=== PATIENT | female | born 1950 | race Caucasian/White ===

== ENCOUNTER 2024-12-25 14:04 | Outpatient (AMB) | payer OTHER, SELFPAY ==
--- NOTE | 2024-12-25 14:07 | MHC.OFFVIS ---
Intake Visit Reasons: 3m Allergies No Known Allergies Allergy (Verified 12/24/24 10:16) HPI Comments Details: 74 years old woman with chronic anxiety, depression, and insomnia. A home polysomnogrm in 2023 revealed mild VANCE. She said that she has these conditions since she was a child. It worsened more than 10 years ago after her . She is presenting for prescription refills and medication review. She is currently on quetiapine 400 mg and zolpidem for insomnia and it has been working well for her without any aftereffect or side effect. She also takes Sertraline 200mg in am but no longer uses Trazodone due to a lack of effect. She reports no adverse reactions or side effects from her medication. The patient follows her medication schedule diligently as prescribed and expresses satisfaction with the treatment. Medications are filled at [facility] in [place]. She noted no changes in her conditions or the emergence of new symptoms, focusing the visit on ensuring her continued pharmaceutical management is effective. [facility] Medical History (Updated 12/25/24 @ 14:09 by Maria Alejandra Ramirez MD) RLS (restless legs syndrome) Depression with anxiety Insomnia Review of Systems Const Details: - General: Denies any side effects from medications. - Neurological: Reports compliance with morning dosing; no new symptoms reported. Physical Exam Neuro Other: Mental Status: Alert and oriented to person, place, and time. Normal attention. Normal spontaneous speech, fluency, and comprehension. No obvious issues with mood and memory. Affect is appropriate. Cranial Nerves: CN II: Visual jeffery full to confrontation, visual acuity intact. CN III, IV, : Pupils equal, round, reactive to light and accommodation. Extraocular movements are normal. CN V: Facial sensation is normal. CN VII: Facial movements symmetrical. CN VIII: Hearing intact to bedside conversation is normal. CN IX, X: Palate elevates symmetrically. CN XI: Shoulder shrug and head turn symmetrical. CN XII: Tongue midline without atrophy or fasciculations. Extrapyramidal: Full facial expressions and blinking. No rigidity. Movements are appropriate with no tremor or abnormality. Speech: Normal; no dysarthria or tremor. Assessment & Plan Assessment & Plan (1) RLS (restless legs syndrome): Comment: Meds tried: Trazodone, quetiapine, amtiryptiline Home PSG at Sleep center in Jan 2024: TST AHI 12, REM sleep AHI 30, desat to 85%. Code(s): G25.81 - Restless legs syndrome Category: Medical (2) Depression with anxiety: Code(s): F41.8 - Other specified anxiety disorders Category: Medical (3) Insomnia: Comment: Meds tried: Trazodone, quetiapine, amtiryptiline Home PSG at Sleep center in Jan 2024: TST AHI 12, REM sleep AHI 30, desat to 85%. Code(s): G47.00 - Insomnia, unspecified Category: Medical Qualifiers: Insomnia type: due to other mental disorder Qualified Code(s): F51.05 - Insomnia due to other mental disorder; F99 - Mental disorder, not otherwise specified Plan Impression: 1. 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 2. Restless legs syndrome treated with small dose of pramipexole 3. Depression treated with sertraline Recommendations: 1. Quetiapine 400 mg at night for sleep 2. Zolpidem 10 mg at night for sleep 3. Sertraline 100 mg 2 in the morning for depression 4. Pramipexole 0.25 mg at night for restless legs syndrome 5. Again education about her medicines including the potential side-effects. So far she did not have any complications or side-effects. 6. Behavioral therapy has been mentioned multiple times but she stated that it never helped and at this time she was not interested. Medications: New sertraline 200 mg (2 x 100 mg) PO QAM 180 tabs 1RF pramipexole 0.25 mg PO BEDTIME 90 tabs 1RF Refilled zolpidem 10 mg PO BEDTIME 90 tabs 1RF Coding Level of Care Code Est Pt Level 5 (77848) Diagnoses RLS (restless legs syndrome) G25.81 Depression with anxiety F41.8 Insomnia due to other mental disorder F51.05; F99 Insomnia type: due to other mental disorder
--- OUTSIDE RECORDS SUMMARY | 2024-12-25 15:17 | XMS_ITS | Clinical Summary ---
Author Organization [facility] Address [address] [place] [address] Care Team Providers Care Practice Nurse Name Role Phone Alena Bullock MD Primary Care Provider Unavailable Allergies No known active allergies Medications No known medications Active Problems No known active problems Social History Tobacco Use Types Packs/Day Years Used Date Smoking Tobacco: Never Smokeless Tobacco: Never Tobacco Cessation:Counseling Given: Not Answered Alcohol Use Standard Drinks/Week Comments Never 0 (1 standard drink = 0.6 oz pur e alcohol) Sex and Gender Information Value Date Recorded Sex Assigned at Not on file Gender Identity Not on file Sexual Orientation Not on file Job Start Date Occupation Industry Not on file Not on file Not on file Last Filed Vital Signs Vital Sign Reading Time Taken Comments Blood Pressure 131/69 05/10/2022 1:14 PM EST Pulse 71 05/10/2022 1:14 PM EST Temperature 36.1 C (97 F) 05/10/2022 1:14 PM EST Respiratory Rate - - Oxygen Saturation 99% 05/10/2022 1:14 PM EST Inhaled Oxygen Concentration - - Weight 87.5 kg (193 lb) 05/10/2022 1:14 PM EST Height 157.5 cm (5' 2 ) 05/10/2022 1:14 PM EST Body Mass Index 35.3 05/10/2022 1:14 PM EST Plan of Treatment Health Maintenance Due Date Last Done Comments Hepatitis C Screening 1950 COVID-19 Vaccine (#1) 1950 Depression Screening 1963 BMI Counseling 06/19/1969 Preventative Health Evaluation 06/19/1969 Colon Cancer Screening (Colonoscopy) 06/19/1996 Breast Cancer Screening (Mammogram) 06/19/2001 Fall Risk Assessment 06/19/2016 Osteoporosis Screening (DEXA Scan) 06/19/2016 DTap / Tdap / Td (3 - Td or Tdap) 09/09/2020 09/09/2010, 01/24/2008, 01/24/2008 Influenza Vaccine (#1) 2024 2, 01/10/2020, 01/10/2020, Additional history exists RSV Adult > 60+ Yrs or (1 - 1-dose 75+ series) 06/19/2026 Pneumococcal Vaccine Completed 06/29/2018, 05/30/19 18 Shingrix-Zoster Vaccine Completed 06/03/2019, 04/02 Hepatitis B Vaccines Aged Out No long er eligible based on patient's age to complete this topic RSV Ped < 20 months Aged Out No longe r eligible based on patient's age to complete this topic Care Teams Practice Nurse Relationship Specialty Start Date End Date Alena Bullock MD PCP - General Family Medicine 04/29/22
--- OUTSIDE RECORDS SUMMARY | 2024-12-25 15:17 | XMS_ITS | Clinical Summary ---
Author Organization [place] [address] [address] [facility] Building Address [address] [place] [address] Phone Care Team Providers Care Machine Wedger Name Role Phone Yesenia Pierson MD Primary Care Provider [phone] Allergies No known active allergies Medications ferrous sulfate 325 mg (65 mg elemental iron) tablet Take 325 mg by mouth daily. 3 Active bisacodyL (DULCOLAX) 5 mg EC tablet Take 2 tablets by mouth right before beginning bowel prep. See instructions provided by the office 2 tablet 5 Active Additional Information Patient not taking.Reported on 09/24/2024 zolpidem (AMBIEN) 10 mg tablet 5 Active losartan (COZAAR) 100 mg tabletIndication s:Essential hypertension Take 1 tablet (100 mg total) by mouth 1 (one) time each day. 90 each 1 5 025 Active sertraline (ZOLOFT) 100 mg tablet Take 2 tablets (200 mg total) by mouth 1 (one) time each day. 5 Active pramipexole (MIRAPEX) 0.25 mg tablet Take 1 tablet (0.25 mg total) by mouth at bedtime. 30 tablet 5 Active Active Problems Problem Noted Date Diagnosed Date Hypertension 03/08/2024 VANCE (obstructive sleep apnea) 03/07/2024 Essential hypertension 02/02/2024 Insomnia 02/02/2024 Leg pain, bilateral 02/02/2024 Overview (02/02/2024): Eval with Dr. Samson and referred to Dr. Arellano, venous eval 07/2018 Restless legs syndrome (RLS) 02/02/2024 Rasta ulcer 05/09/2022 Mixed hyperlipidemia 11/05/2021 Varicose veins of both lower extremities 019 Overview (02/02/2024): Procedures with Dr. Arellano, 01/2019 Osteopenia 01/18/2018 Overview (02/02/2024): Dexa 12/2017 Migraine 01/20/2017 Diverticulosis 01/18/2017 Overview (02/02/2024): On colonoscopy Erosive gastritis 01/18/2017 Overview (02/02/2024): On EGD 2013 Upper GI bleed 02/28 Rasta erosions Follows with [facility] gastroenterology Iron deficiency anemia 01/18/2017 Overview (02/02/2024): Labs 12/2016 Depression 01/12/2017 Generalized anxiety disorder 01/12/2017 Encounters Date Type Department Care Team Description 10/10/2024 Telephone Internal Medicine - [address] [place] [phone] Shyanne Becerra [place] 09/24/2024 3:00 PM EDT Office Visit Internal Medicine - [address] [place] [phone] Kelly Washburn NP Essential hypertension (Primary Dx); Anxiety and depression; Insomnia, unspecified type; Mixed hyperlipidemia; Iron deficiency anemia, unspecified iron deficiency anemia type from Last 3 Months Immunizations Immunization Administration Dates Next Due Influenza Quadravalent, MDCK , 0.5ml, with preservative (Flucelvax) 6mo and older 12/13/2017 Influenza trivalent, 0.5mL ( Fluad) 65yo and older 01/31/2023,02/14/2022,02/12/2019,12/21,01/27/2016 Influenza trivalent, 0.5mL, preservative free (Fluarix; FluLaval; Fluzone) ages 6mo and older (Afluria) 3 years and older 01/10/2020 Moderna SARS-CoV-2 COVID-19, mRNA, LNP-S, preservative free 04/05/2021 Pneumococcal conjugate 13 va lent (Prevnar 13, PCV13) 2mo and older 05/29/2017 Pneumococcal polysaccharide 23 valent (Pneumovax 23) 2yo and older 06/29/2018 TD, Adsorbed, Preservative Free 06/25/2021 Td Tetanus diptheria (Tdvax) 7yo and older 01/24/2008 Tdap Tetanus diptheria acell ular pertussis (Boostrix; Adacel) 7yo and older 09/09/2010,01/24/2008 Zoster Live 05/29/2017 Zoster recombinant (Shingrix ) 19yo and older 06/03/2019,04/02/2019 Surgical History Surgery Date Site/Laterality Comments PARTIAL HYSTERECTOMY 2006 PROCEDURE: MO SUPRACERVICAL ABDL HYSTER W/WO RMVL TUBE OVARY; COMMENT: BATSHEVA BSO COLONOSCOPY 01/02/2013 PROCEDURE: HISTORICAL COLONOSCOPY; COMMENT: Dr. Thania Coffman, 5 yr f/u, diverticulosis ESOPHAGOGASTRODUODENOSCOPY 03/13/2014 PROCEDURE: MO ESOPHAGOGASTRODUODENOSCOPY TRANSORAL DIAGNOSTIC; COMMENT: erosive gastritis COLONOSCOPY 02/15/2006 PROCEDURE: HISTORICAL COLONOSCOPY OTHER SURGICAL HISTORY Right PROCEDURE: BREAST TISSUE EXCISIONAL PATHOLOGY EXAM; COMMENT: aspiration VARICOSE VEIN SURGERY 01/2019 PROCEDURE: MO LIGJ DIVJ &/EXCJ VARICOSE VEIN CLUSTER 1 LEG; COMMENT: Dr. Arellano; ablation of right great saphenous vein from proximal thigh to mid calf and accessory vein of lateral mid thigh, accessory/varicose vein of lateral mid thigh and calf Medical History Medical History Date Comments Depression DX:Depression Anxiety DX:Anxiety; COMM ENT: on lorazepam since the Leg pain, bilateral DX:Leg pain, bilateral Insomnia DX:Insomnia Restless legs syndrome (RLS) DX: Restless legs syndrome (RLS) Borderline high blood pressure D X:Borderline high blood pressure Stomach ulcer DX:Stomach ulcer Migraine 01/20/2017 DX:Migraine Hypertension VANCE (obstructive sleep apnea) Family History Medical History Relation Name Comments Lung cancer Brother 1 Diabetes Brother 2 Hypertension Brother 2 stroke, diabete s Stroke Brother 2 Diabetes Brother 3 Hypertension Brother 3 diabetes Diabetes Brother 4 Hypertension Brother 4 diabetes Diabetes Brother 5 Diabetes Brother 6 No Known Problems Daughter 1 No Known Problems Daughter 2 Colon cancer Maternal Grandmother Coronary artery disease Mother Dementia Mother CAD, pacemaker Hypertension Mother Diabetes Sister Colon cancer Uncle Breast cancer Neg Hx Relation Name Status Comments Brother 1 Brother 2 Alive Brother 3 Alive Brother 4 Alive Brother 5 Alive Brother 6 Alive Daughter 1 Alive Daughter 2 Alive Father Maternal Grandmother Mother Sister Alive Uncle Social History Tobacco Use Types Packs/Day Years Used Date Smoking Tobacco: Never Smokeless Tobacco: Never Tobacco Cessation:Counseling Given: Not Answered Alcohol Use Standard Drinks/Week Comments Not Currently 0 (1 standard drink = 0.6 oz pur e alcohol) Interpersonal Safety Answer Date Record ed Physical Abuse Unrecognized value 05/01/2024 Verbal Abuse Unrecognized value 05/01/2024 Comments No Sex and Gender Information Value Date Recorded Sex Assigned at Female 04/30/2024 10:07 AM EST Legal Sex Female 5:15 PM EST Gender Identity Female 04/30/2024 10:07 AM EST Sexual Orientation Straight 04/30/2024 10 :07 AM EST Obstetrics History Last Filed Vital Signs Vital Sign Reading Time Taken Comments Blood Pressure 112/66 09/24/2024 2:46 PM EDT Pulse 81 09/24/2024 2:46 PM EDT Temperature 36 C (96.8 F) 05/01/2024 1:21 PM EST Respiratory Rate 16 09/24/2024 2:46 PM EDT Oxygen Saturation 98% 05/01/2024 2:04 PM EST Inhaled Oxygen Concentration - - Weight 80.9 kg (178 lb 6.4 oz) 09/24/2024 2:46 P M EDT Height 157.5 cm (5' 2 ) 05/01/2024 1:21 PM EST Body Mass Index 32.63 05/01/2024 1:21 PM EST Plan of Treatment Upcoming Encounters Date Type Department Care Team (Late st Contact Info) Description 03/28/2025 2:30 PM EST Office Visit Internal Medicine - [address] [phone] Kelly Washburn NP [address] [place] [phone] Health Maintenance Due Date Last Done Comments Medicare Annual Wellness Visit 03/05/2022 Social Influencers of Health Screening 03/05/2022 Depression Screening 03/27/2024 COVID-19 Vaccine ( season) 2024 04/05/2021, 07/10/2020, 06/11/2020 Influenza Vaccine (#1) 2024 3, 02/14/2022, 01/09/2021, Additional history exists Hypertension/CHF/CAD Annual BMP Blood Test 03/08/2025 03/08/2024, 09/30/2022 Falls Risk Assessment 05/01/2025 05/01/2024 Breast Cancer Screening 08/15/2025 08/16/19 24, 08/16/2023, 08/04/2022, Additional history exists RSV Immunization Adult Patients (1 - 1-dose 75+ series) 06/19/2026 Colorectal Cancer Screening: Colonoscopy 05/01/2029 05/01/2024, 01/20/2016 Cholesterol Screening (Lipid Panel) 09/25/2029 09/25/2024, 03/08/2024, 11/15/2022 DTaP,Tdap,and Td Vaccines (5 - Td or Tdap) 06/26/2031 06/25/2021, 09/09/2010, 01/24/2008, Additional history exists Osteoporosis Screening (Bone Density Screening) 08/28/2033 08/29/2023, 08/28/2023, 06/10/2020, Additional history exists Hepatitis C Screening Completed 05/06/2015 Pneumococcal Vaccine: 50+ Years Completed 06/29/2018, 05/29/2017 Zoster Vaccines Completed 06/03/2019, 09/2019, 05/29/2017 HIB Vaccines Aged Out No longer eligi ble based on patient's age to complete this topic HPV Vaccines Aged Out No longer eligi ble based on patient's age to complete this topic Hepatitis A Vaccines Aged Out No long er eligible based on patient's age to complete this topic Hepatitis B Vaccines Aged Out No long er eligible based on patient's age to complete this topic IPV Vaccines Aged Out No longer eligi ble based on patient's age to complete this topic MMR Vaccines Aged Out No longer eligi ble based on patient's age to complete this topic Meningococcal ACWY Vaccine Aged Out N o longer eligible based on patient's age to complete this topic Meningococcal B Vaccine Aged Out No l onger eligible based on patient's age to complete this topic RSV Immunization Patients Under 20 months Aged Out No longer eligible based on patient's age to complete this topic Varicella Vaccines Aged Out No longer eligible based on patient's age to complete this topic Procedures Procedure Name Priority Date/Time Associated Diagnosis Comments CBC WITH AUTO DIFFERENTIAL Routine 09/25/2024 11:14 AM EDT Iron deficiency anemia, unspecified iron deficiency anemia type LIPID PANEL WITH REFLEX TO DIRECT LDL Routine 09/25/2024 11:14 AM EDT Mixed hyperlipidemia CBC AND DIFFERENTIAL Routine 09/25/2024 11:14 AM EDT Iron deficiency anemia, unspecified iron deficiency anemia type IRON AND TIBC Routine 09/25/2024 11:14 AM EDT Iron deficiency anemia, unspecified iron deficiency anemia type FERRITIN Routine 09/25/2024 11:14 AM EDT Iron deficiency anemia, unspecified iron deficiency anemia type COLONOSCOPY Routine 05/01/2024 1:43 PM EST Family history of colonic polyps BASIC METABOLIC PANEL Routine 03/08/2024 9:46 AM EST Other fatigue YESIKA DEXA AXIAL SKELETON Routine 08/29/2023 9:36 AM EDT Other specified disorders of bone density and structure, other site SCREENING MAMMOGRAPHY BI 2-VIEW BREAST INC CAD Routine 08/16/2023 9:57 AM EDT Encounter for screening mammogram for malignant neoplasm of breast HM HEPATITIS C SCREENING Routine 05/06/2015 from Last 3 Months or Most Recently Relevant to Health Maintenance Results * (ABNORMAL) Lipid panel with reflex to direct LDL (09/25/2024 11:14 AM EDT) Cholesterol 157 0 - 200 mg/dL LAB CHEMISTRY METHOD 09/25/2024 3:14 PM EDT [facility] Triglycerides 195(H) 0 - 150 mg/dL LAB CHEMISTRY METHOD 09/25/2024 3:14 PM EDT [facility] HDL 48 >=40 mg/dL LAB CHEMISTRY METHOD 09/25/2024 3:14 PM EDT [facility] LDL Calculated 70 0 - 100 mg/dL LAB CHEMISTRY METHOD 09/25/2024 3:14 PM EDT [facility] VLDL Cholesterol Moises 39 mg/dL LAB CHEMISTRY METHOD 09/25/2024 3:14 PM EDT [facility] Non HDL Chol. (LDL+VLDL) 109 <145 mg/dL LAB CHEMISTRY METHOD 09/25/2024 3:14 PM EDT [facility] Chol/HDL Ratio 3.3 0.0 - 4.4 LAB CHEMISTRY METHOD 09/25/2024 3:14 PM EDT [facility] Blood Venous blood specimen / Unknown Venipuncture / Unknown 09/25/2024 11:14 AM EDT 09/25/2024 11:14 AM EDT us Kelly Washburn NP LAB BLOOD ORDERABLES Final Resul t [facility] [address] [place] [address], * (ABNORMAL) CBC auto differential (09/25/2024 11:14 AM EDT) WBC 5.7 4.8 - 10.8 K/[facility] LAB HEMETOLOGY METHOD 09/25/2024 1:51 PM EDT [facility] RBC 4.70 3.80 - 4.80 M/mcL LAB HEMETOLOGY METHOD 09/25/2024 1:51 PM [facility] Hemoglobin 13.8 11.5 - 16.0 g/dL LAB HEMETOLOGY METHOD 09/25/2024 1:51 PM [facility] Hematocrit 42.8 35.0 - 47.0 % LAB HEMETOLOGY METHOD 09/25/2024 1:51 PM [facility] MCV 91.3 79.0 - 98.0 FL LAB HEMETOLOGY METHOD 09/25/2024 1:51 PM [facility] MCH 29.4 27.0 - 32.0 pcg LAB HEMETOLOGY METHOD 09/25/2024 1:51 PM [facility] MCHC 32.2 32.0 - 37.0 g/dL LAB HEMETOLOGY METHOD 09/25/2024 1:51 PM [facility] RDW 13.3 11.0 - 15.0 % LAB HEMETOLOGY METHOD 09/25/2024 1:51 PM [facility] Platelets 244 130 - 400 K/mcL LAB HEMETOLOGY METHOD 09/25/2024 1:51 PM [facility] MPV 11.3(H) 7.0 - 11.0 FL LAB HEMETOLOGY METHOD 09/25/2024 1:51 PM [facility] NRBC 0.0 <1.0 % LAB HEMETOLOGY METHOD 09/25/2024 1:51 PM [facility] NRBC Absolute 0.00 <0.10 K/mcL LAB HEMETOLOGY METHOD 09/25/2024 1:51 PM [facility] Neutrophils Relative 56.8 % LAB HEMETOLOGY METHOD 09/25/2024 1:51 PM [facility] Lymphocytes Relative 31.3 % LAB HEMETOLOGY METHOD 09/25/2024 1:51 PM [facility] Monocytes Relative 6.5 % LAB HEMETOLOGY METHOD 09/25/2024 1:51 PM EDT [facility] Eosinophils Relative 4.4 % LAB HEMETOLOGY METHOD 09/25/2024 1:51 PM EDT [facility] Basophils Relative 0.7 % LAB HEMETOLOGY METHOD 09/25/2024 1:51 PM EDT [facility] Immature Granulocytes Relative 0.3 % LAB HEMETOLOGY METHOD 09/25/2024 1:51 PM EDT [facility] Neutrophils Absolute 3.25 1.50 - 7.00 K/mcL LAB HEMETOLOGY METHOD 09/25/2024 1:51 PM EDT [facility] Lymphocytes Absolute 1.79 1.00 - 5.00 K/mcL LAB HEMETOLOGY METHOD 09/25/2024 1:51 PM EDT [facility] Monocytes Absolute 0.37 0.20 - 1.00 K/mcL LAB HEMETOLOGY METHOD 09/25/2024 1:51 PM EDT [facility] Eosinophils Absolute 0.25 0.00 - 0.50 K/mcL LAB HEMETOLOGY METHOD 09/25/2024 1:51 PM EDT [facility] Basophils Absolute 0.04 0.00 - 0.20 K/mcL LAB HEMETOLOGY METHOD 09/25/2024 1:51 PM EDT [facility] Immature Granulocytes Absolute 0.02 0.00 - 0.03 K/mcL LAB HEMETOLOGY METHOD 09/25/2024 1:51 PM EDT [facility] Blood Venous blood specimen / Unknown Venipuncture / Unknown 09/25/2024 11:14 AM EDT 09/25/2024 11:14 AM EDT us Kelly Washburn NP LAB BLOOD ORDERABLES Final Resul t [facility] [address] [place] [address], [place] [phone] * Iron and TIBC (09/25/2024 11:14 AM EDT) Iron 90 40 - 150 mcg/dL LAB CHEMISTRY METHOD 09/25/2024 3:14 PM EDT [facility] TIBC 267 250 - 450 mcg/dL LAB CHEMISTRY METHOD 09/25/2024 3:14 PM EDT [facility] Iron Saturation 34 15 - 50 % LAB CHEMISTRY METHOD 09/25/2024 3:14 PM EDT [facility] Blood Venous blood specimen / Unknown Venipuncture / Unknown 09/25/2024 11:14 AM EDT 09/25/2024 11:14 AM EDT us Kelly Washburn NP LAB BLOOD ORDERABLES Final Resul t Performing Organization Address City/[facility]/ZIP Co de Phone Number [facility] [address] [place] [address], [place] [phone] * Ferritin (09/25/2024 11:14 AM EDT) Ferritin 129 8 - 252 ng/mL LAB CHEMISTRY METHOD 09/25/2024 3:14 PM EDT [facility] Blood Venous blood specimen / Unknown Venipuncture / Unknown 09/25/2024 11:14 AM EDT 09/25/2024 11:14 AM EDT us Kelly Washburn NP LAB BLOOD ORDERABLES Final Resul t Performing Organization Address City/[facility]/ZIP Co de Phone Number [facility] [address] [place] [address], [place] [phone] * [place]ONOSCOPY [place] [facility] [place] [facility]COPY (05/01/2024 1:43 PM EST) Anatomical Region Laterality Modality Endoscopy 05/01/2024 1:24 PM EST Impressions 05/01/2024 1:44 PM EST - The examination was otherwise normal on direct and retroflexion views. - No specimens collected. Recommendation: - - Discharge patient to home. - Resume previous diet. - Continue present medications. - Repeat colonoscopy in 10 years for screening purposes. - Return to primary care physician. Narrative 05/01/2024 1:44 PM EST [facility] GI Patient Name: Hilda Mccarthy Procedure Date: 05/01/2024 1:24 PM Date of : 1950 Age: 73 Gender: Female Note Status: Finalized Attending MD: Kit De Leon DO, [id number] Procedure Date No Time: 05/01/2024 Procedure: Colonoscopy Indications: Screening for colorectal malignant neoplasm Providers: Kit De Leon DO Referring MD: Chuyita Gillette DO Medicines: Monitored Anesthesia Care Complications: No immediate complications. Estimated blood loss: None. Estimated Blood Loss: Estimated blood loss: none. Procedure: Pre-Anesthesia Assessment: - - Prior to the procedure, a History and Physical was performed, and patient medications and allergies were reviewed. The patient is competent. The risks and benefits of the procedure and the sedation options and risks were discussed with the patient. All questions were answered and informed consent was obtained. Patient identification and proposed procedure were verified by the physician, the nurse, the anesthesiologist, the process engineering intern and the emergency room technician in the pre-procedure area in the endoscopy suite. Mental Status Examination: alert and oriented. Airway Examination: normal oropharyngeal airway and neck mobility. Respiratory Examination: clear to auscultation. CV Examination: normal. Prophylactic Antibiotics: The patient does not require prophylactic antibiotics. Prior Anticoagulants: The patient has taken no anticoagulant or antiplatelet agents. ASA Grade Assessment: II - A patient with severe systemic disease. After reviewing the risks and benefits, the patient was deemed in satisfactory condition to undergo the procedure. The anesthesia plan was to use monitored anesthesia care (MAC). Immediately prior to administration of medications, the patient was re-assessed for adequacy to receive sedatives. The heart rate, respiratory rate, oxygen saturations, blood pressure, adequacy of pulmonary ventilation, and response to care were monitored throughout the procedure. The physical status of the patient was re-assessed after the procedure. After I obtained informed consent, the scope was passed under direct vision. Throughout the procedure, the patient's blood pressure, pulse, and oxygen saturations were monitored continuously. The Olympus Pediatric Colonoscope was introduced through the anus and advanced to the cecum, identified by appendiceal orifice and ileocecal valve. The colonoscopy was performed without difficulty. The patient tolerated the procedure well. The quality of the bowel preparation was good. Findings: The perianal and digital rectal examinations were normal. The exam was otherwise without abnormality on direct and retroflexion views. Procedure Code(s): --- Professional --- G0121, Colorectal cancer screening; colonoscopy on individual not meeting criteria for high risk Diagnosis Code(s): --- Professional --- Z12.11, Encounter for screening for malignant neoplasm of colon CPT copyright 2020 [employer]. All rights reserved. The codes documented in this report are preliminary and upon communications planner review may be revised to meet current compliance requirements. KIT De Leon DO 05/01/2024 1:43:40 PM This report has been signed electronically.Kit De Leon DO Number of Addenda: 0 Note Initiated On: 05/01/2024 1:24 PM Scope Withdrawal Time: 0 hours 6 minutes 13 seconds Scope In: 1:30:20 PM Scope Out: 1:41:27 PM Endoscopy Department at [facility] - [address] [place] [phone] Procedure Note Kit De Leon DO - 05/01/2024 [facility] GI Patient Name: Hilda Mccarthy Procedure Date: 05/01/2024 1:24 PM Date of : 1950 Age: 73 Gender: Female Note Status: Finalized Attending MD: Kit De Leon DO, [id number] Procedure Date No Time: 05/01/2024 Procedure: Colonoscopy Indications: Screening for colorectal malignant neoplasm Providers: Kit De Leon DO Referring MD: Chuyita Gillette DO Medicines: Monitored Anesthesia Care Complications: No immediate complications. Estimated blood loss:None. Estimated Blood Loss: Estimated blood loss: none. Procedure: Pre-Anesthesia Assessment: - - Prior to the procedure, a History and Physicalwas performed, and patient medications and allergieswere reviewed. The patient is competent. The risks and benefits of the procedure and the sedation optionsand risks were discussed with the patient. Allquestions were answered and informed consent was obtained. Patient identification and proposed procedure were verified by the physician, the nurse, the anesthesiologist, the process engineering intern and thetechnician in the pre-procedure area in the endoscopy suite. Mental Status Examination: alert and oriented.Airway Examination: normal oropharyngeal airway and neck mobility. Respiratory Examination: clear to auscultation. CV Examination: normal. Prophylactic Antibiotics: The patient does not requireprophylactic antibiotics. Prior Anticoagulants: The patient has taken no anticoagulant or antiplatelet agents. ASA Grade Assessment: II - A patient with severesystemic disease. After reviewing the risks and benefits,the patient was deemed in satisfactory condition to undergo the procedure. The anesthesia plan was touse monitored anesthesia care (MAC). Immediately priorto administration of medications, the patient was re-assessed for adequacy to receive sedatives. The heart rate, respiratory rate, oxygen saturations, blood pressure, adequacy of pulmonary ventilation,and response to care were monitored throughout the procedure. The physical status of the patient was re-assessed after the procedure. After I obtained informed consent, the scope was passed under direct vision. Throughout theprocedure, the patient's blood pressure, pulse, and oxygen saturations were monitored continuously. TheOlympus Pediatric Colonoscope was introduced through theanus and advanced to the cecum, identified byappendiceal orifice and ileocecal valve. The colonoscopy was performed without difficulty. The patient tolerated the procedure well. The quality of the bowel preparation was good. Findings: The perianal and digital rectal examinations were normal. The exam was otherwise without abnormality ondirect and retroflexion views. Procedure Code(s): --- Professional --- G0121, Colorectal cancer screening; colonoscopy on individual not meeting criteria for high risk Diagnosis Code(s): --- Professional --- Z12.11, Encounter for screening for malignantneoplasm of colon CPT copyright 2020 [employer]. All rights reserved. The codes documented in this report are preliminary and upon communications planner reviewmay be revised to meet current compliance requirements. KIT De Leon DO 05/01/2024 1:43:40 PM This report has been signed electronically.Kit De Leon DO Number of Addenda: 0 Note Initiated On: 05/01/2024 1:24 PM Scope Withdrawal Time: 0 hours 6 minutes 13 seconds Scope In: 1:30:20 PM Scope Out: 1:41:27 PM Endoscopy Department at [facility] - [address] [place] [phone] IMPRESSION: - The examination was otherwise normal on direct and retroflexion views. - No specimens collected. Recommendation: - - Discharge patient to home. - Resume previous diet. - Continue present medications. - Repeat colonoscopy in 10 years for screening purposes. - Return to primary care physician. Kit De Leon DO GI~PROCEDURE ORDERABLES Final Re sult * (ABNORMAL) Basic metabolic panel (03/08/2024 9:46 AM EST) Sodium 143 133 - 145 mmol/L LAB CHEMISTRY METHOD 03/08/2024 1:22 PM [facility] Potassium 4.0 3.5 - 5.5 mmol/L LAB CHEMISTRY METHOD 03/08/2024 1:22 PM [facility] Chloride 107 96 - 110 mmol/L LAB CHEMISTRY METHOD 03/08/2024 1:22 PM [facility] CO2 28 21 - 32 mmol/L LAB CHEMISTRY METHOD 03/08/2024 1:22 PM [facility] Anion Gap 8 3 - 11 LAB CHEMISTRY METHOD 03/08/2024 1:22 PM [facility] Glucose 113(H) 70 - 100 mg/dL LAB CHEMISTRY METHOD 03/08/2024 1:22 PM [facility] BUN 10 5 - 25 mg/dL LAB CHEMISTRY METHOD 03/08/2024 1:22 PM [facility] Creatinine 0.67 0.50 - 1.10 mg/dL LAB CHEMISTRY METHOD 03/08/2024 1:22 PM [facility] eGFR 93 >=60 mL/min/1. 73m2 LAB CHEMISTRY METHOD 03/08/2024 1:22 PM [facility] Comment:Calculation based on the Chronic Kidney Disease Epidemiology Collaboration (CKD-EPI) equation refit without adjustment for race. BUN/Creatinine Ratio 14.9 LAB CHEMISTRY METHOD 03/08/2024 1:22 PM EST [facility] Calcium 8.8 8.5 - 10.5 mg/dL LAB CHEMISTRY METHOD 03/08/2024 1:22 PM EST [facility] Blood Venous blood specimen / Unknown Venipuncture / Unknown 03/08/2024 9:46 AM EST 03/08/2024 9:46 AM EST us Chuyita Gillette DO LAB BLOOD ORDERABLES Final Res ult [facility] [address] [place] [address], * YESIKA DEXA AXIAL SKELETON (08/29/2023 9:36 AM EDT) Anatomical Region Laterality Modality Mammography 08/28/2023 2:50 PM EDT Narrative 08/29/2023 9:[address] [facility] Diagnostic Imaging Department [address] [place] [address] Patient: HILDA MCCARTHY./Age/Sex: 1950 - 73 - F Unit#: [id number] Location/Status: SPDIMAM/REG CLI Mnemonic/Ordering Site: MAMDEXAAX/SPMAM Ordering Physician: ALENA BULLOCK MD Yesika Dexa Axial Skeleton - 08/28/23 - [id number] Report Status:Signed HISTORY: The patient is a 73-year-old postmenopausal female with clinical concern for metabolic bone disease. FINDINGS: Dual energy x-ray absorptiometry of the lumbar spine and femurs is performed. The mean bone mineral density at L1-L4 is 0.908 gm/cm2 which is 77% of that of young normals and 85% of that of age matched controls. This yields a T-score of -2.3 and a Z-score of -1.3 which is diagnostic of osteopenia. The mean bone mineral density of the femurs bilaterally is 0.784 gm/cm2 which is 78% of that of young normals and 89% of that of age matched controls. This yields a T-score of -1.8 and a Z-score of -0.7 which is diagnostic of osteopenia. The T-score of the right femoral neck is -2.3 and that of the left femoral neck is -2.4 which is diagnostic of osteopenia. IMPRESSION: 1. Osteopenia. 2. FRAX analysis yields a 10-year probability of major osteoporotic fracture of 20.8% and a 10-year probability of hip fracture of 8.5%. Code 37053 Dictating Physician: ALEXX BAKER MD Electronically Signed by: ALEXX BAKER MD Dic Date/Time: 08/29/23935 Sign date/Time: 08/29/23935 Procedure Note Alexx Baker MD - 01/10/2024 [facility] Diagnostic Imaging Department [address] [place] [address] Patient: FABIOHILDA Chua/Age/Sex: 1950 - 73 - F Unit#: [id number] [facility] Ordering Physician: ALENA BULLOCK MD Yesika Dexa Axial Skeleton - 08/28/23 - [id number] Report Status:Signed HISTORY: The patient is a 73-year-old postmenopausal female withclinical concern for metabolic bone disease. FINDINGS: Dual energy x-ray absorptiometry of the lumbar spine and femursis performed. The mean bone mineral density at L1-L4 is 0.908 gm/cm2 which is77% of that of young normals and 85% of that of age matched controls. Thisyields a T-score of -2.3 and a Z-score of -1.3 which is diagnostic of osteopenia. The mean bone mineral density of the femurs bilaterally is 0.784 gm/ph0lgzol is 78% of that of young normals and 89% of that of age matched controls.This yields a T-score of -1.8 and a Z-score of -0.7 which is diagnostic of osteopenia. The T-score of the right femoral neck is -2.3 and that of theleft femoral neck is -2.4 which is diagnostic of osteopenia. IMPRESSION: 1. Osteopenia. 2. FRAX analysis yields a 10-year probability of major osteoporoticfracture of 20.8% and a 10-year probability of hip fracture of 8.5%. Code 63384 Dictating Physician: ALEXX BAKER MD Electronically Signed by: ALEXX BAKER MD Dic Date/Time: 08/29/23935 Sign date/Time: 08/29/23935 Alena Bullock MD IMG BI PROCEDURES Final Result * SCREENING MAMMOGRAPHY BI 2-VIEW BREAST INC CAD (08/16/2023 9:57 AM EDT) Anatomical Region Laterality Modality Radiographic Amalia ging 08/04/2022 9:20 AM EDT Narrative 08/16/2023 12:52 PM EDT This is a summary report. The complete report is available in the patient's medical record. If you cannot access the medical record, please contact the sending organization for a detailed fax or copy. Full field digital screening tomosynthesis mammography, reviewed with CAD and compared to previous. The breasts are composed of fatty and fibroglandular tissue. No suspicious mass, architectural distortion or suspicious calcifications are identified. IMPRESSION: : No mammographic evidence of malignancy. BIRADS 1-Negative; N. 5 year breast cancer risk assessment 1.0 % Lifetime breast cancer risk assessment 2.5 % Breast cancer risk category Low (<15%) Procedure Note Josue Monroy MD - 11/13/2023 This is a summary report. The complete report is available in thepatient's medical record. If you cannot access the medical record, pleasecontact the sending organization for a detailed fax or copy. Full field digital screening tomosynthesis mammography, reviewed with CADand compared to previous. The breasts are composed of fatty andfibroglandular tissue. No suspicious mass, architectural distortion orsuspicious calcifications are identified. IMPRESSION: : No mammographic evidence of malignancy. BIRADS 1-Negative; N. 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
== END 2024-12-25 14:15 | disposition home or self-care (01) ==
LOC: HO.HSM 14:05
PROVIDERS: PCP Internal Medicine; Visit Provider Psychiatry & Neurology Neurology
DX: G25.81 Restless legs syndrome (principal); F41.8 Other specified anxiety disorders; F51.05 Insomnia due to other mental disorder; F99 Mental disorder, not otherwise specified
CPT/HCPCS: 99214